=== PATIENT | female | born 1960 | race Hispanic/Latino ===

== ENCOUNTER 2023-03-12 09:35 | Inpatient (IN) | payer SELFPAY ==
[2023-03-12] MEDS ORDERED: Ondansetron PF 4 MG/2 ML Vial ONE ×3 (10:16→14:57)
[2023-03-12 10:48] LABS: Hemoglobin 16.5 g/dL (12.0-16.0); Mean Corpuscular HGB CONC 34.6 g/dL (32.0-36.0); Mean Corpuscular Hemoglobin 32.7 pg (27.0-31.0); Mean Corpuscular Volume 94.4 fl (78.0-98.0); Platelet Count 285 10x3/uL (130-400); RBC Distribution Width 12.2 % (11.5-14.5); Red Blood Cell (RBC) Count 5.04 mill/uL (4.20-5.40); White Blood Cell (WBC) Count 6.2 10x3/uL (4.8-10.8)
[2023-03-12 10:58] LABS: PTT 31.6 sec (22.9-36.1); Prothrombin Time 13.7 sec (12.0-14.7)
[2023-03-12 11:14] LABS: ALT (SGPT) 31 U/L (8-55); AST (SGOT) 26 U/L (5-34); Albumin 4.7 g/dL (3.4-4.8); Alkaline Phosphatase 103 U/L (40-110); Anion Gap 25 mmol/L (10-20); BUN (Urea Nitrogen) 47 mg/dL (9.8-20.1); Bilirubin, Total 0.7 mg/dL (0.2-1.2); Calc. Creatinine Clearance 0 mL/min (70-130); Carbon Dioxide 19 mmol/L (23-31); Chloride 88 mmol/L (98-107); Estimated GFR 27; Globulin 3.5 g/dL (2.4-3.5); Glucose 311 mg/dL (80-115); Potassium 3.3 mmol/L (3.5-5.1); Protein, Total 8.2 g/dL (5.8-8.1); Sodium 129 mmol/L (136-145)
[2023-03-12 11:27] LABS: Band 66 % (5-11); Lymphocytes 10 % (21-51); MDiff Complete? YES; Metamyelocyte 1 % (0-0); Monocytes 5 % (0-10); Neutrophil 17 % (42-75); Platelet Morphology Comment Appears Adequate; Polychromasia SLIGHT = 2-3 cells (100X) (0-2/hpf); Reactive Lymphocytes 1 % (0-10); Toxic Granulation SLIGHT
[2023-03-12] MEDS ORDERED: metroNIDAZOLE 500 MG/100 ML BAG ONE (12:45)
[2023-03-12] MEDS ORDERED: Lactated Ringer's 1,000 ML IV SCH (13:00)
[2023-03-12] MEDS ORDERED: Calcium Carbonate 500 MG ChewTAB PO PRN (14:34)
[2023-03-12] MEDS ORDERED: Acetaminophen 650 MG Suppository PR PRN (14:34)
[2023-03-12] MEDS ORDERED: Ondansetron ODT 4 MG TAB PO PRN (14:34)
[2023-03-12] MEDS ORDERED: Pantoprazole 40 MG VIAL IVP SCH (14:45)
[2023-03-12] MEDS ORDERED: Pantoprazole 40 MG VIAL ONE (14:49)
[2023-03-12] MEDS ORDERED: Acetaminophen 325 MG TAB ONE (14:49)
[2023-03-12] MEDS ORDERED: Dextrose 50% Abboject 50 ML SYRINGE SLOW IVP PRN (14:57)
[2023-03-12] MEDS ORDERED: Dextrose 5% in Water 1,000 ML IV PRN (14:57)
[2023-03-12] MEDS ORDERED: Insulin Regular 300 UNITS/3 ML VIAL SC PRN ×2 (14:57)
[2023-03-12] MEDS: Ondansetron PF 4 MG/2 ML Vial IVP PRN ×2 (14:59→19:59)
[2023-03-12] MEDS ORDERED: Sodium Chloride 0.9% 1,000 ML IV SCH (15:00)
[2023-03-12] MEDS: Acetaminophen 325 MG TAB PO PRN (15:03)
[2023-03-12 16:17] LABS: Lactic Acid 3.1 mmol/L (0.5-2.2)
[2023-03-12 16:57] LABS: Anion Gap 18 mmol/L (10-20); BUN (Urea Nitrogen) 42 mg/dL (9.8-20.1); Calc. Creatinine Clearance 0 mL/min (70-130); Calcium 7.5 mg/dL (7.8-10.44); Carbon Dioxide 16 mmol/L (23-31); Chloride 102 mmol/L (98-107); Estimated GFR 40; Glucose 191 mg/dL (80-115); Magnesium 1.9 mg/dL (1.6-2.6); Phosphorus 4.3 mg/dL (2.3-4.7); Potassium 2.9 mmol/L (3.5-5.1); Sodium 133 mmol/L (136-145)
[2023-03-12] MEDS ORDERED: Electrolyte Replacement Protocol 1 EACH FS SCH (17:45)
[2023-03-12] MEDS ORDERED: Electrolyte Replacement Protocol FS PRN ×2 (18:00)
[2023-03-12] MEDS ORDERED: Magnesium 2 GM/50 ML(in water) 2 GM in Premix Bag 1 BAG IVPB SCH (18:00)
[2023-03-12] MEDS ORDERED: Potassium Phosphate 30 MMOL in Sodium Chloride 0.9% 250 ML 250 ML IVPB SCH (18:30)
[2023-03-12] MEDS: Potassium Chloride 20 MEQ in Lactated Ringer's 1,000 ML IV SCH (19:36)
[2023-03-12] MEDS: Pantoprazole 40 MG VIAL IVP SCH (20:04)
[2023-03-12] MEDS: metroNIDAZOLE 500 MG in Premix Bag 1 BAG IVPB SCH (21:30)
[2023-03-12] MEDS: Potassium Chloride 20 MEQ in Premix Bag 1 BAG IVPB SCH (22:55)
[2023-03-12] MEDS ORDERED: cefTRIAXone\\ROCEPHIN 1 GM in Sodium Chloride 0.9% 100 ML IVPB SCH (23:00)
[2023-03-13] MEDS: Potassium Chloride 20 MEQ in Lactated Ringer's 1,000 ML IV SCH ×4 (00:44→21:54)
[2023-03-13] MEDS: Potassium Chloride 20 MEQ in Premix Bag 1 BAG IVPB SCH (00:55)
[2023-03-13] MEDS: metroNIDAZOLE 500 MG in Premix Bag 1 BAG IVPB SCH ×3 (05:49→21:55)
[2023-03-13 07:07] LABS: Lactic Acid 0.8 mmol/L (0.5-2.2)
[2023-03-13 07:18] LABS: Mean Corpuscular HGB CONC 34.6 g/dL (32.0-36.0); Mean Corpuscular Hemoglobin 32.9 pg (27.0-31.0); Mean Platelet Volume 6.6 fL (7.4-10.4); Platelet Count 220 10x3/uL (130-400); RBC Distribution Width 12.1 % (11.5-14.5); Red Blood Cell (RBC) Count 3.65 mill/uL (4.20-5.40); White Blood Cell (WBC) Count 5.4 10x3/uL (4.8-10.8)
[2023-03-13 07:39] LABS: ALT (SGPT) 21 U/L (8-55); AST (SGOT) 21 U/L (5-34); Albumin 3.1 g/dL (3.4-4.8); Alkaline Phosphatase 61 U/L (40-110); Anion Gap 13 mmol/L (10-20); BUN (Urea Nitrogen) 33 mg/dL (9.8-20.1); Bilirubin, Total 0.3 mg/dL (0.2-1.2); Calc. Creatinine Clearance 38 mL/min (70-130); Calcium 7.7 mg/dL (7.8-10.44); Carbon Dioxide 19 mmol/L (23-31); Chloride 107 mmol/L (98-107); Estimated GFR 39; Globulin 2.5 g/dL (2.4-3.5); Glucose 111 mg/dL (80-115); Magnesium 2.7 mg/dL (1.6-2.6); Phosphorus 3.9 mg/dL (2.3-4.7); Potassium 3.3 mmol/L (3.5-5.1); Protein, Total 5.6 g/dL (5.8-8.1); Sodium 136 mmol/L (136-145)
[2023-03-13] MEDS ORDERED: Promethazine 25 MG TAB PO PRN (08:39)
[2023-03-13] MEDS ORDERED: Promethazine HCl 25 MG in Sodium Chloride 0.9% 50 ML IVPB PRN (08:39)
[2023-03-13] MEDS ORDERED: Potassium Chloride 20 MEQ in Lactated Ringer's 1,000 ML IV SCH ×2 (08:41→21:00)
[2023-03-13] MEDS ORDERED: Potassium Chloride 20 MEQ TAB PO SCH (09:15)
[2023-03-13] MEDS: Acetaminophen 325 MG TAB PO PRN (09:36)
[2023-03-13] MEDS: Saccharomyces boulardii 250 MG CAP PO SCH (09:36)
[2023-03-13] MEDS: Pantoprazole 40 MG VIAL IVP SCH ×2 (09:37→20:41)
[2023-03-13 09:42] LABS: Band 43 % (5-11); Eosinophils 1 % (0-10); Lymphocytes 18 % (21-51); MDiff Complete? YES; Monocytes 6 % (0-10); Neutrophil 32 % (42-75); Platelet Morphology Comment Appears Adequate; Polychromasia SLIGHT = 2-3 cells (100X) (0-2/hpf); Toxic Granulation SLIGHT
[2023-03-13 09:51] LABS: Bacteria/HPF None Seen HPF (None Seen); Bilirubin Negative (Negative); Blood, Urine 1+ (Negative); Clarity Clear (Clear); Glucose, Urine (Dipstick) Normal (Negative); Ketone, Urine 10 mg/dL (Negative); Leukocyte 25 Leu/uL (Negative); Nitrite Negative (Negative); Protein, Urine (Dipstick) 30 mg/dL (Neg-Trace); RBC/HPF 0-3 HPF (0-3); Specific Gravity, Urine 1.018 (1.002-1.036); Squamous Epithelial 0-3 HPF (0-3); Urobilinogen Normal mg/dL (Less than 2); WBC/HPF 0-3 HPF (0-3); pH, Urine 5.5 (5.0-9.0)
[2023-03-13] MEDS ORDERED: Loperamide HCl 2 MG CAP PO PRN (10:21)
[2023-03-13 10:56] VITALS: BMI 24.0
[2023-03-13 15:15] LABS: Campy jejuni + coli by PCR Negative (Negative); STEC Shiga Toxin 1+2 Negative (Negative); Salmonella spp. by PCR POSITIVE (Negative); Shigella spp + EIEC by PCR Negative (Negative)
[2023-03-14] MEDS: Potassium Chloride 20 MEQ in Lactated Ringer's 1,000 ML IV SCH ×4 (02:12→21:56)
[2023-03-14] MEDS: metroNIDAZOLE 500 MG in Premix Bag 1 BAG IVPB SCH ×3 (06:17→21:35)
[2023-03-14 07:40] LABS: Mean Corpuscular HGB CONC 34.4 g/dL (32.0-36.0); Mean Platelet Volume 6.5 fL (7.4-10.4); Platelet Count 222 10x3/uL (130-400); RBC Distribution Width 12.5 % (11.5-14.5); Red Blood Cell (RBC) Count 3.34 mill/uL (4.20-5.40); White Blood Cell (WBC) Count 5.2 10x3/uL (4.8-10.8)
[2023-03-14 07:52] LABS: ALT (SGPT) 16 U/L (8-55); AST (SGOT) 18 U/L (5-34); Albumin 2.9 g/dL (3.4-4.8); Alkaline Phosphatase 60 U/L (40-110); Anion Gap 12 mmol/L (10-20); BUN (Urea Nitrogen) 18 mg/dL (9.8-20.1); Bilirubin, Total 0.4 mg/dL (0.2-1.2); Calc. Creatinine Clearance 44 mL/min (70-130); Calcium 7.7 mg/dL (7.8-10.44); Carbon Dioxide 20 mmol/L (23-31); Chloride 112 mmol/L (98-107); Estimated GFR 46; Glucose 98 mg/dL (80-115); Magnesium 2.1 mg/dL (1.6-2.6); Potassium 3.9 mmol/L (3.5-5.1); Protein, Total 4.9 g/dL (5.8-8.1); Sodium 140 mmol/L (136-145)
[2023-03-14 07:56] LABS: Phosphorus 1.5 mg/dL (2.3-4.7)
[2023-03-14] MEDS: Pantoprazole 40 MG VIAL IVP SCH ×2 (08:35→21:35)
[2023-03-14] MEDS: Saccharomyces boulardii 250 MG CAP PO SCH (08:35)
[2023-03-14 09:55] LABS: Band 12 % (5-11); Differential Comment Immature Cell(s); Large Platelets SLIGHT; Lymphocytes 18 % (21-51); MDiff Complete? YES; Monocytes 12 % (0-10); Neutrophil 57 % (42-75); Other Cell Types 1; Platelet Morphology Comment Appears Adequate
[2023-03-14] MEDS: PHOS-NAK 1 PKT PACK PO SCH ×4 (10:52→21:36)
[2023-03-14] MEDS: Melatonin 3 MG TAB PO PRN (21:55)
[2023-03-15] MEDS: Potassium Chloride 20 MEQ in Lactated Ringer's 1,000 ML IV SCH ×2 (05:38→20:40)
[2023-03-15] MEDS: metroNIDAZOLE 500 MG in Premix Bag 1 BAG IVPB SCH ×3 (05:39→20:43)
[2023-03-15] MEDS: Saccharomyces boulardii 250 MG CAP PO SCH (08:31)
[2023-03-15] MEDS: Pantoprazole 40 MG VIAL IVP SCH ×2 (08:31→20:30)
[2023-03-15 08:56] LABS: ALT (SGPT) 15 U/L (8-55); AST (SGOT) 22 U/L (5-34); Albumin 3.2 g/dL (3.4-4.8); Alkaline Phosphatase 65 U/L (40-110); Anion Gap 15 mmol/L (10-20); BUN (Urea Nitrogen) 11 mg/dL (9.8-20.1); Bilirubin, Total 0.4 mg/dL (0.2-1.2); Calc. Creatinine Clearance 46 mL/min (70-130); Calcium 7.9 mg/dL (7.8-10.44); Carbon Dioxide 21 mmol/L (23-31); Chloride 107 mmol/L (98-107); Estimated GFR 49; Globulin 2.4 g/dL (2.4-3.5); Glucose 103 mg/dL (80-115); Potassium 3.6 mmol/L (3.5-5.1); Protein, Total 5.6 g/dL (5.8-8.1); Sodium 139 mmol/L (136-145)
[2023-03-15] MEDS: Melatonin 3 MG TAB PO PRN (20:43)
[2023-03-16] MEDS: Potassium Chloride 20 MEQ in Lactated Ringer's 1,000 ML IV SCH ×2 (03:17→11:04)
[2023-03-16] MEDS: metroNIDAZOLE 500 MG in Premix Bag 1 BAG IVPB SCH (05:16)
[2023-03-16] MEDS: Saccharomyces boulardii 250 MG CAP PO SCH (08:18)
[2023-03-16] MEDS: Pantoprazole 40 MG VIAL IVP SCH (08:21)
[2023-03-16] MEDS: Melatonin 3 MG TAB PO PRN (21:07)
[2023-03-17] MEDS: Potassium Chloride 20 MEQ in Lactated Ringer's 1,000 ML IV SCH ×2 (05:23→19:12)
[2023-03-17] MEDS: Saccharomyces boulardii 250 MG CAP PO SCH (09:43)
[2023-03-17 11:28] LABS: #Eosinphils 0.1 thou/uL (0.0-0.7); #Monocytes 0.9 thou/uL (0.11-0.59); #Neutrophils 3.5 thou/uL (1.40-6.50); %Basophils 0.6 % (0.0-1.0); %Eosinophils 1.9 % (0.0-10.0); %Lymphocytes 30.7 % (21.0-51.0); %Monocytes 13.9 % (0.0-10.0); Hemoglobin 11.4 g/dL (12.0-16.0); Mean Corpuscular Hemoglobin 33.5 pg (27.0-31.0); Mean Corpuscular Volume 95.7 fl (78.0-98.0); Mean Platelet Volume 6.9 fL (7.4-10.4); Platelet Count 279 10x3/uL (130-400); RBC Distribution Width 12.1 % (11.5-14.5); Red Blood Cell (RBC) Count 3.39 mill/uL (4.20-5.40); White Blood Cell (WBC) Count 6.7 10x3/uL (4.8-10.8)
[2023-03-17 11:49] LABS: Anion Gap 13 mmol/L (10-20); BUN (Urea Nitrogen) 10 mg/dL (9.8-20.1); Calc. Creatinine Clearance 45 mL/min (70-130); Calcium 7.9 mg/dL (7.8-10.44); Carbon Dioxide 28 mmol/L (23-31); Chloride 102 mmol/L (98-107); Estimated GFR 48; Glucose 212 mg/dL (80-115); Potassium 3.5 mmol/L (3.5-5.1); Sodium 139 mmol/L (136-145)
[2023-03-17] MEDS: Acetaminophen 325 MG TAB PO PRN (19:13)
[2023-03-18] MEDS ORDERED: Ciprofloxacin 500 MG TAB PO SCH (06:00)
[2023-03-18 07:42] LABS: Potassium 3.7 mmol/L (3.5-5.1)
[2023-03-18] MEDS: Saccharomyces boulardii 250 MG CAP PO SCH (09:19)
[2023-03-18 20:04] VITALS: BP 118/77; TEMP 98.3
== END 2023-03-18 16:20 | disposition home or self-care (01) | DRG 872 ==
LOC: ERS 09:35 → ERHOLD 12:45 → T4-A 18:46
PROVIDERS: ADMIT Internal Medicine; ATTEND Internal Medicine
DX: A02.1 Salmonella sepsis (principal); A02.0 Salmonella enteritis; N17.9 Acute kidney failure, unspecified; E87.20 Acidosis, unspecified; E87.1 Hypo-osmolality and hyponatremia; R65.20 Severe sepsis without septic shock; E87.6 Hypokalemia; E83.42 Hypomagnesemia; F41.9 Anxiety disorder, unspecified; K21.9 Gastro-esophageal reflux disease without esophagitis; E83.39 Other disorders of phosphorus metabolism; E11.9 Type 2 diabetes mellitus without complications; Z79.899 Other long term (current) drug therapy; Z79.84 Long term (current) use of oral hypoglycemic drugs; Z90.710 Acquired absence of both cervix and uterus; Z83.3 Family history of diabetes mellitus; Z89.512 Acquired absence of left leg below knee
CPT/HCPCS: 36415; 36416; 74176; 80048; 80053; 81001; 82010; 83605; 83630; 83690; 83735; 84100; 84132; 85025; 85610; 85730; 86140; 86850; 86900; 86901; 87040; 87324; 87449; 87505; 93005; 96361; 96365; 96367; 96375; 96376; C9113; J0696; J0744; J1815; J2405; J3475; J3480; J3490; J7050; J7120

== ENCOUNTER 2025-07-20 13:43 | Emergency (ER) | payer OTHER | END 2025-07-20 16:04 | disposition home or self-care (01) | LOC: ERS 13:43 | DX: M25.561 Pain in right knee (principal); M25.531 Pain in right wrist; E11.9 Type 2 diabetes mellitus without complications; W01.0XXA Fall on same level from slipping, tripping and stumbling without subsequent striking against object, initial encounter; Z55.6 Problems related to health literacy | CPT/HCPCS: 99283 ==

== ENCOUNTER 2025-07-25 12:39 | Emergency (ER) | payer OTHER ==
[2025-07-25 13:43] LABS: #Basophils 0.04 10x3/uL (0.0-0.2); #Eosinophils 0.23 10x3/uL (0.0-0.7); #Monocytes 0.46 10x3/uL (0.11-0.59); #Neutrophils 3.50 10x3/uL (1.40-6.50); %Basophils 0.6 % (0.0-1.0); %Eosinophils 3.7 % (0.0-10.0); %Lymphocytes 31.3 % (21.0-51.0); %Monocytes 7.5 % (0.0-10.0); %Neutrophils 56.7 % (42.0-75.0); Hematocrit 41.8 % (36.0-47.0); Hemoglobin 13.5 g/dL (12.0-16.0); Mean Corpuscular Hemoglobin 30.1 pg (27.0-31.0); Mean Corpuscular Volume 93.3 fL (78.0-98.0); Platelet Count 278 10x3/uL (130-400); Red Blood Cell (RBC) Count 4.48 mill/uL (4.20-5.40); White Blood Cell (WBC) Count 6.17 10x3/uL (4.8-10.8)
[2025-07-25] MEDS ORDERED: Ondansetron PF 4 MG/2 ML Vial ONE (13:52)
[2025-07-25] MEDS ORDERED: Acetaminophen 500 MG TAB ONE (13:52)
[2025-07-25 14:07] LABS: ALT (SGPT) 13 U/L (Less than 34); AST (SGOT) 19 U/L (11-34); Albumin 4.0 g/dL (3.1-4.5); Alkaline Phosphatase 123 U/L (40-110); Anion Gap 13 mmol/L (10-20); BUN (Urea Nitrogen) 22 mg/dL (9.8-20.1); Bilirubin, Total 0.3 mg/dL (0.3-1.2); CK (CPK) 39 U/L (29-168); Calc. Creatinine Clearance 0 mL/min (70-130); Calcium 9.5 mg/dL (7.8-10.44); Carbon Dioxide 27 mmol/L (23-31); Chloride 102 mmol/L (98-107); Globulin 3.9 g/dL (2.4-3.5); Glucose 192 mg/dL (80-115); Potassium 3.7 mmol/L (3.5-5.1); Sodium 138 mmol/L (136-145)
== END 2025-07-25 16:18 | disposition home or self-care (01) ==
LOC: ERS 12:39
DX: S06.0X0A Concussion without loss of consciousness, initial encounter (principal); R11.2 Nausea with vomiting, unspecified; E11.9 Type 2 diabetes mellitus without complications; R29.700 NIHSS score 0; Z55.6 Problems related to health literacy; Z79.84 Long term (current) use of oral hypoglycemic drugs; W01.0XXA Fall on same level from slipping, tripping and stumbling without subsequent striking against object, initial encounter
CPT/HCPCS: 70450; 71045; 80053; 82550; 84484; 85025; 93005; 96374; J2405